=== PATIENT | female | born 1945 | race Caucasian/White ===

== ENCOUNTER 2024-01-04 08:41 | Day surgery (SDC) | payer MEDICARE, OTHER, SELFPAY ==
[2024-01-04] VITALS (14 sets, daily range): BP systolic 125–171; BP diastolic 52–70; BMI 28.1
[2024-01-04] MEDS: LOW STRENGTH ASPIRIN 81 MG PO (09:10)
[2024-01-04 09:21] LABS: Hematocrit 41.4 % (37.0-47.0); Hemoglobin 13.9 g/dL (12.0-16.0); Mean Corp Hgb Conc. 33.6 g/dL (33.0-37.0); Mean Corpuscular Hgb 29.6 pg (27.0-31.0); Mean Corpuscular Volume 88.1 fL (81.0-99.0); Mean Platelet Volume 10.6 fL (7.4-10.4); Platelet Count 274 10^3/uL (130-400); Red Cell Dist. Width 12.4 % (11.5-14.5); White Blood Cell Count 5.9 10^3/uL (4.8-10.8)
[2024-01-04 09:33] LABS: Blood Urea Nitrogen 12 mg/dl (7-17); Calcium 9.5 mg/dl (8.4-10.2); Carbon Dioxide 26 mmol/L (22-30); Chloride 106 mmol/L (98-107); Estimated Creatinine Clearance 63 ml/min; Glucose 102 mg/dl (70-99); Potassium 4.4 mmol/L (3.5-5.1); Sodium 139 mmol/L (135-145); eGFR > 60.00
[2024-01-04] MEDS: NSS 230 ML IV (09:47)
[2024-01-04 09:49] LABS: INR 1.01; PT 13.1 Sec (11.4-14.6)
[2024-01-04 09:50] LABS: APTT 30.4 Sec (23.4-35.0)
--- NOTE | 2024-01-04 11:30 | ITS.CL.CATH ---
[facility] - Catheterization
Cardiac Catheterization
Procedure Report:
CARDIAC CATHETERIZATION REPORT
Date of Procedure: 01/04/2024
Referring: Haja Allen MD
Indication: Chest pain
HEMODYNAMIC DATA
AO: 158/67
LV: 158/24
LEFT VENTRICULOGRAPHY: Normal left ventricular wall motion with EF 67%
CORONARY ANGIOGRAPHY
Dominance: Right
Left Main: Normal
LAD: 10% proximal LAD stenosis with 20% mid stenosis on a highly angulated segment. There is a 30% mid to distal LAD stenosis spanning the takeoff of the large D2
Circumflex: There is a small ramus intermedius branch without disease. There is 20% ostial circumflex stenosis with 30% mid stenosis distal to the takeoff of the small OM1. The circumflex terminates with medium sized OM 2 and OM 3 vessels both of
which were angiographically normal.
RCA: Large dominant vessel with trivial luminal irregularities
Closure Device: 6 [place] Angio-Seal RFA. Of note, we obtained right radial artery access easily. There was a double loop (360 degrees x 2) in the innominate artery making it impossible to pass a 0.035 J-wire or hydrophilic Glidewire into the
ascending aorta and we transition to a right femoral artery approach. Right femoral artery access was obtained on the first attempt with a micropuncture technique
Radiation (mGy): 139
DAP (cm2.Gy): 9.8
Fluoroscopy time: 3.7 minutes
CONCLUSIONS
1: Systemic hypertension
2: Elevated LVEDP
3. Normal left ventricular function with EF 67%
4. Mild CAD as described
5. Continue ASA, statin and risk factor modification efforts. Symptoms may be related to diastolic dysfunction
Copy to: Haja Allen MD, Melissa Lundberg MD
Kan Harris MD, [facility], [facility]
== END 2024-01-04 15:00 | disposition home or self-care (01) ==
LOC: CATH 08:41
PROVIDERS: ATTENDING PHYSICIAN Internal Medicine Cardiovascular Disease; FAMILY PHYSICIAN Internal Medicine
DX: I25.10 Atherosclerotic heart disease of native coronary artery without angina pectoris (principal); R07.9 Chest pain, unspecified; R06.02 Shortness of breath; I10 Essential (primary) hypertension; E78.5 Hyperlipidemia, unspecified; E11.9 Type 2 diabetes mellitus without complications; Z79.82 Long term (current) use of aspirin
CPT/HCPCS: C1894; C1769; C1760; 80048; 85027; 85610; 85730; 93458; Q9967